=== PATIENT | female | born 1965 | race Caucasian/White ===

== ENCOUNTER 2020-04-29 19:15 | Emergency (ER) | payer OTHER, SELFPAY ==
[2020-04-29] VITALS (9 sets, daily range): BP systolic 108–129; BP diastolic 42–76; PULSE 72–93; RESP 12–22; TEMP 36.8; O2SAT 97–99
--- NOTE | ~2020-04-29 | XR_ITS ---
XR chest 2V DATE: 04/29/2020 20:22 INDICATION: Left-sided chest pain, shortness of breath for a few days TECHNIQUE: PA and lateral views COMPARISON: 07/30/2018 PA and lateral chest FINDINGS: Normal heart size. No hilar or mediastinal enlargement. No pulmonary infiltrate or consol idation, pulmonary vascular congestion, pleural effusion or pneumothorax. IMPRESSION: No active cardiopulmonary disease Reviewed, dictated and finalized at location A.
--- NOTE | 2020-04-29 19:58 | ECG_ITS ---
Measurements Intervals [place] Rate: 81 P: 59 SC: 182 QRS: 26 QRSD: 97 T: 47 QT: 397 QTc: 462 Interpretive Statements SINUS RHYTHM LOW QRS VOLTAGE IN PRECORDIAL LEADS BASELINE ARTIFACT- I, II, III, AVR, AVL, AVF, V1-V6 BORDERLINE ECG Electronically Signed On 04-29-2020 20:20:14 CDT by Raad Cantu D.O.
--- NOTE | 2020-04-29 20:04 | PC.NURSE ---
Pt. states she has had heart failure in the past, but I don't have it anymore. I also have a blood clot in my lungs and pneumonia probably 20 times.
[2020-04-29 20:24] LABS: Basophils Absolute Auto 0.1 K/mm3 (0.0-0.1); Basophils Percent Auto 1.8 % (0.2-1.2); Eosinophils Absolute Auto 0.6 K/mm3 (0-0.3); Eosinophils Percent Auto 13.8 % (0-4.4); Hematocrit 37.1 % (37.0-47.0); Hemoglobin 12.3 g/dL (12.0-15.0); Immature Granulocyte Absolute 0.01 K/mm3 (0.00-0.031); Immature Granulocyte Percent A 0.2 % (0-0.5); Lymphocytes Absolute Auto 1.74 K/mm3 (0.9-3.2); Lymphocytes Percent Auto 38.7 % (18.3-44.2); Mean Corpuscular HGB Conc 33.2 g/dl (32-36); Mean Corpuscular Hemoglobin 28.5 pg (26-34); Mean Corpuscular Volume 86.1 fl (80-100); Mean Platelet Volume 10.7 fl (7.4-10.4); Monocytes Absolute Auto 0.5 K/mm3 (0.1-0.6); Neutrophils Absolute Auto 1.6 K/mm3 (1.3-6.7); Neutrophils Percent Auto 35.5 % (45.5-73.1); Platelet Count Result 202 k/mm3 (150-375); Red Blood Count 4.31 M/mm3 (4.2-5.4); Red Cell Distribution Width 13.5 % (11.5-14.5); White Blood Count 4.5 K/mm3 (4.5-10.0)
[2020-04-29 20:38] LABS: INR 0.9; Prothrombin Time 12.8 Seconds (11.1-14.7)
[2020-04-29 20:39] LABS: Partial Thromboplastin Time 26.9 SECONDS (22.3-36.8)
[2020-04-29 20:41] LABS: Anion Gap 10 mmol/L (8-16); Blood Urea Nitrogen 17 mg/dL (7-17); Calcium 8.5 mg/dL (8.4-10.2); Carbon Dioxide 24 mmol/L (22-30); Chloride 107 mmol/L (98-107); Estimated CRCL calculation 57 ml/min; Estimated Glomerular Filt Rate 52; Glucose 98 mg/dL (65-105); Potassium 3.8 mmol/L (3.4-5.0); Sodium 141 mmol/L (137-145)
[2020-04-29 20:52] LABS: Troponin I < 0.012 ng/mL (0.000-0.034)
--- NOTE | 2020-04-29 21:48 | PC.NURSE ---
Per CYNTHIA Reynoso via verbal order-readback, give 5mg Valium PO.
[2020-04-29] MEDS: diazePAM (*CRX) 5 MG TABLET PO (21:51)
[2020-04-29] MEDS: IPRATROPIUM BR 0.02% INH SOLN 0.5 MG/2.5 ML VIAL INHALATION (21:52)
[2020-04-29] MEDS: ALBUTEROL SULFATE NEB 2.5 MG/0.5 ML INH 5 MG INHALATION (21:52)
--- NOTE | 2020-04-29 21:53 | ED.GENADULT ---
HPI - General Adult General Chief complaint: Neck Pain/Injury Stated complaint: Swelling on left neck and hard to breathe Time Seen by Provider: 04/29/20 21:21 Source: patient Mode of arrival: ambulatory Limitations: no limitations History of Present Illness HPI narrative: Patient is a 54-year-old female who presents to emergency department for evaluation of left-sided neck pain that radiates down to the chest that began today also noting some wheezing and a cough that developed today patient notes she had felt fine yesterday denies similar occurrence in the past. Patient presents per private vehicle no distress. Patient has not taken anything for symptom. After further questioning patient notes that she has actually had the pain for 3 days Related Data Allergies Allergy/AdvReac Type Severity Reaction Status Date / Time Penicillins Allergy Unknown Verified 10/11/18 18:27 Review of Systems Review of Systems: All systems reviewed & are unremarkable except as noted in HPI and below PMFSH Past Medical History Medical History (Updated 04/29/20 @ 23:48 by Arash Jimenes PA-C) Anxiety Depression Social History Social History (Updated 04/29/20 @ 21:55 by Arash Jimenes PA-C) Smoking status: Never smoker Gender identity (if verbalized by the patient): Female Exam Narrative: Exam Narrative: GENERAL: Well-appearing, well-nourished, and in no acute distress. HEAD: Normocephalic, atraumatic. EYES: PERRLA and EOMI. ENT: Nares clear, no rhinorrhea or epistaxis. Mucous membranes moist. Oropharynx without tonsillar hypertrophy exudate or other lesions. Mild tenderness to the left paraspinal cervical musculature no deformities noted no masses no swelling NECK: Supple. No adenopathy or masses. CHEST: Clear to auscultation. No respiratory distress. No wheezes rales or rhonchi HEART: Regular rate and rhythm. No murmur heard. Normal peripheral pulses. ABDOMEN: Soft, nontender, nondistended EXTREMITIES: Normal range of motion. No edema. SKIN: Warm, dry, no rash. NEURO: No focal deficits. Alert and oriented x3. Cranial nerves II through XII grossly intact PSYCH: Normal mood and affect. Course Course Emergency Course: Patient in the room at this time no distress aware of case findings treatment plan and diagnosis agreeing to follow with primary care patient's ABCs and vital signs intact and stable. Patient is afebrile nontoxic-appearing no distress. No high risk changes in the blood work or imaging. Patient was offered further interventions for her discomfort but prefers to go home. Patient will be treated outpatient Vital Signs Vital signs: Vital Signs Temperature 98.2 F 04/29/20 19:58 Pulse Rate 83 04/29/20 19:58 Respiratory Rate 20 04/29/20 19:58 Blood Pressure 108/42 L 04/29/20 19:58 Pulse Oximetry 98 04/29/20 19:58 Temperature 98.2 F 04/29/20 19:58 Pulse Rate 90 04/29/20 22:15 Respiratory Rate 22 H 04/29/20 22:15 Blood Pressure 125/76 04/29/20 21:23 Pulse Oximetry 99 04/29/20 22:15 Medical Decision Making MDM Narrative Medical decision making narrative: Patients EKGs and labs are without significant high risk changes. Cardiac risk factors were reviewed. Patient is felt likely to be low risk for ACS and reasonable for further risk stratification testing as an outpatient. Pain was not sudden or maximal in onset without tearing or ripping. quality. No other signs or symptoms to suggest aortic dissection. A low-risk Wells criteria is noted. PE is felt to be unlikely. No pneumonia or URI symptoms were seen on evaluation today. Patient is felt to b reasonable for continued evaluation as an outpatient. Vital Signs Vital Signs: Vital Signs Temperature 98.2 F 04/29/20 19:58 Pulse Rate 83 04/29/20 19:58 Respiratory Rate 20 04/29/20 19:58 Blood Pressure 108/42 L 04/29/20 19:58 Pulse Oximetry 98 04/29/20 19:58 Temperature 98.2 F 04/29/20 19:58 Pulse Rate 90
--- NOTE | 2020-04-29 23:29 | PC.NURSE ---
Patient in room crying, stating I am still in pain, why doesn't the doctor care about me. Patient updated on plan of care and informed PA Edgardo of patient's status.
[2020-04-29 23:45] LABS: Troponin I < 0.012 ng/mL (0.000-0.034)
== END 2020-04-30 00:07 | disposition home or self-care (01) ==
PROVIDERS: Emergency Provider Emergency Medicine; PCP Family Medicine
DX: M54.2 Cervicalgia (principal); R07.9 Chest pain, unspecified; R94.31 Abnormal electrocardiogram [ECG] [EKG]
CPT/HCPCS: 36415; 71046; 80048; 84484; 85025; 85610; 85730; 93005; 94640; 99284; A9270

== ENCOUNTER 2020-11-19 12:36 | Observation (INO) | payer OTHER, SELFPAY ==
--- NOTE | ~2020-11-19 | US_ITS ---
EXAMINATION: US abdomen limited EXAM DATE: 11/19/2020 16:28 INDICATION: Abdominal pain. Distended gallbladder on CT. TECHNIQUE: Multiple grayscale and Doppler images of the abdomen right upper quadrant were obtained (rhoda y a technologist who performed the scan) and subsequently reviewed. Correlation is made to CT scan ea rlnito same date. FINDINGS: The pancreatic head and body are normal in appearance. The pancreatic tail is not visualized. The l iver has normal echogenicity and contour. There are no focal liver lesions identified. There is no evidence of intrahepatic biliary duct dilation. Portal venous flow was seen in the hepatopedal, nor mal direction and has normal Doppler waveform. No right-sided hydronephrosis. Common bile duct measures 2-3 mm, which is normal. The gallbladder wall is normal in thickness, with moderate amount of distention. No sonographic evidence of pericholecystic fluid. There is no cholel ithiases. Technologist does report patient had right upper quadrant tenderness. IMPRESSION: Distended otherwise unremarkable gallbladder, but sonographic Bennett's sign was suspected by technologist. Can't exclude early acute cholecystitis. Reviewed, dictated and finalized at location G. IMPRESSION: Distended otherwise unremarkable gallbladder, but sonographic Alfredo y's sign was suspected by technologist. Can't exclude early acute cholecystiti s.
--- NOTE | ~2020-11-19 | CT_ITS ---
EXAMINATION: CT abdomen pelvis w con EXAM DATE: 11/19/2020 14:50 INDICATION: Right-sided abdominal pain. TECHNIQUE: Spiral CT of the abdomen and pelvis was performed following intravenous injection of 100 m L Omnipaque 350. Axial, coronal and sagittal images of the abdomen and pelvis were reviewed. The do se-length product (DLP) for this examination was 766.32 mGy-cm. The exposure was tailored according to patient size (auto mA exposure control), and iterative reconstruction (ASIR) was used as additiona l dose reduction technique. There is no prior study for comparison. FINDINGS: The liver, spleen, adrenal glands and pancreas are unremarkable. The gallbladder is disten ded but otherwise unremarkable. There is no biliary duct dilation. Portal and splenic veins are pat ent. Kidneys enhance symmetrically. There is no hydronephrosis. The uterus is unremarkable. The bladder is unremarkable. There is no retroperitoneal or pelvic lymphadenopathy. The appendix is normal. The stomach and small bowel are unremarkable. There is expected amount of c olonic stool. No free intraperitoneal gas. The heart is normal in size. There are no pericardial or pleural effusions. The lung bases are unremarkable. There are no osteoblastic or osteolytic les ions identified. IMPRESSION: 1. Distended but otherwise unremarkable gallbladder. Reviewed, dictated and finalized at location G.
--- NOTE | ~2020-11-19 | XR_ITS ---
EXAMINATION: XR chest 1V portable EXAM DATE: 11/19/2020 13:37 INDICATION: R chest pain X3 WKS, . TECHNIQUE: Portable AP frontal chest x-ray was obtained. Comparison is made to prior examination from 04/29/2020. FINDINGS: The lungs are clear. There are no pleural effusions. The cardiomediastinal silhouette is within normal limits. There is no pneumothorax suspected. The bones and soft tissues are unremarkab le. IMPRESSION: No acute cardiopulmonary findings. Reviewed, dictated and finalized at location G.
[2020-11-19 12:39] VITALS: BP 126/69; PULSE 70; RESP 16; TEMP 36.2; O2SAT 100
[2020-11-19 13:00] LABS: Basophils Absolute Auto 0.1 K/mm3 (0.0-0.1); Basophils Percent Auto 1.6 % (0.2-1.2); Eosinophils Absolute Auto 0.1 K/mm3 (0-0.3); Hematocrit 40.4 % (37.0-47.0); Hemoglobin 13.2 g/dL (12.0-15.0); Immature Granulocyte Absolute 0.01 K/mm3 (0.00-0.031); Immature Granulocyte Percent A 0.2 % (0-0.5); Lymphocytes Absolute Auto 2.44 K/mm3 (0.9-3.2); Lymphocytes Percent Auto 44.2 % (18.3-44.2); Mean Corpuscular HGB Conc 32.7 g/dl (32-36); Mean Corpuscular Hemoglobin 27.7 pg (26-34); Mean Corpuscular Volume 84.9 fl (80-100); Mean Platelet Volume 10.5 fl (7.4-10.4); Monocytes Absolute Auto 0.4 K/mm3 (0.1-0.6); Monocytes Percent Auto 6.9 % (2.6-8.5); Neutrophils Absolute Auto 2.5 K/mm3 (1.3-6.7); Neutrophils Percent Auto 45.1 % (45.5-73.1); Platelet Count Result 264 k/mm3 (150-375); Red Blood Count 4.76 M/mm3 (4.2-5.4); White Blood Count 5.5 K/mm3 (4.5-10.0)
[2020-11-19 13:09] LABS: Alanine Aminotransferase 16 U/L (4-35); Albumin Level 4.7 g/dL (3.5-5.1); Alkaline Phosphatase 62 U/L (38-126); Anion Gap 13 mmol/L (8-16); Aspartate Amino Transferase 24 U/L (14-36); Bilirubin,Total 0.2 mg/dL (0.2-1.3); Blood Urea Nitrogen 14 mg/dL (7-17); Calcium 9.7 mg/dL (8.4-10.2); Carbon Dioxide 21 mmol/L (22-30); Chloride 107 mmol/L (98-107); Estimated CRCL calculation 61 ml/min; Estimated Glomerular Filt Rate 58; Glucose 120 mg/dL (65-110); Lipase 64 U/L (23-300); Potassium 3.7 mmol/L (3.4-5.0); Sodium 141 mmol/L (137-145)
--- NOTE | 2020-11-19 13:25 | ECG_ITS ---
Measurements Intervals [place] Rate: 65 P: 67 DE: 194 QRS: 63 QRSD: 93 T: 56 QT: 451 QTc: 469 Interpretive Statements SINUS RHYTHM WITH SINUS ARRHYTHMIA NORMAL ECG Electronically Signed On 11-19-2020 14:48:03 CDT by Raad Cantu D.O.
--- NOTE | 2020-11-19 13:29 | ED.ABDPAIN ---
HPI - Abdominal Pain General Chief Complaint: Abdominal Pain Stated Complaint: ruq pain Time Seen by Provider: 11/19/20 13:07 Source: RN notes reviewed History of Present Illness HPI narrative: Patient presents emergency department from home for right-sided abdominal pain. Patient states he has had pain in the right lateral lower chest for the past 2 days. States the pain is located over the right lateral lower ribs she denies any direct trauma or injury she states nothing makes the pain better or worse described as sharp and stabbing she is notes associated nausea with the symptoms she denies any fevers or chills shortness of breath vomiting diarrhea or any other symptoms states has been taking Tylenol at home for the symptoms patient notes mild associated headache with the symptoms Related Data Home Medications Medication Instructions Recorded Confirmed clobetasol TOPICAL 11/19/20 clobetasol TOPICAL 11/19/20 hydroxyzine pamoate 11/19/20 lamotrigine 11/19/20 levothyroxine 11/19/20 Allergies Allergy/AdvReac Type Severity Reaction Status Date / Time Penicillins Allergy Unknown Unknown Verified 11/19/20 16:44 Review of Systems Review of Systems: Gen.: Denies fevers or chills ENT: Denies congestion Respiratory: Denies shortness of breath or cough CV: Denies chest pain or palpitations GI: See HPI denies burning, urgency, frequency or hematuria Musculoskeletal: Denies back pain or muscle pain Neuro: Denies numbness, tingling, weakness or focal weakness Skin: Denies rash Except as documented, all other systems reviewed and negative PMFSH Past Medical History Medical History Anxiety Depression Social History Social History Smoking status: Never smoker Gender identity (if verbalized by the patient): Female Exam Narrative: APPEARANCE: No acute distress, nontoxic, resting in bed HEENT: Normocephalic, atraumatic, OMM RESPIRATORY: No respiratory distress, clear to auscultation bilaterally with no rhonchi wheezing or rales CARDIOVASCULAR: RRR s murmur ABDOMINAL: Soft nondistended tender outpatient right upper quadrant no tenderness left upper quadrant, right lower quadrant left lower quadrant no rebound or guarding point tenderness over the right lateral inferior ribs no overlying erythema or rash MUSCULOSKELETAl: Moves all extremities. No clubbing, cyanosis or edema. NEURO: Awake and alert. Following commands, speech normal, no focal deficits SKIN:: Warm, dry. Normal Color PSYCHIATRIC: Normal affect/mood Course Course Emergency Course: Patient continues to have tenderness right upper quadrant following several doses of morphine will admit for pain control this time Plan discussed Dr. Jimenez presentation work-up agrees with consult. Recommends no antibiotics at this time Discussed with ANTON Guerin for Dr Jackson presentation work-up agrees with admission at this time Discussed with patient and family results of workup and diagnosis. Discussed need for admission. Patient and family understand and agree to current treatment plan Vital Signs Vital signs: Vital Signs Temperature 97.1 F L 11/19/20 12:39 Pulse Rate 70 11/19/20 12:39 Respiratory Rate 16 11/19/20 12:39 Blood Pressure 126/69 11/19/20 12:39 Pulse Oximetry 100 11/19/20 12:39 Temperature 97.1 F L 11/19/20 12:39 Pulse Rate 64 11/19/20 16:30 Respiratory Rate 16 11/19/20 16:30 Blood Pressure 118/76 11/19/20 16:30 Pulse Oximetry 100 11/19/20 16:30 MDM - Abdominal Pain Lab Data Result diagrams: 11/19/20 12:49 11/19/20 12:49 Labs: Lab Results 11/19/20 11/19/20 11/19/20 Range/Units 12:49 12:49 13:54 WBC 5.5 (4.5-10.0) K/mm3 RBC 4.76 (4.2-5.4) M/mm3 Hgb 13.2 (12.0-15.0) g/dL Hct 40.4 (37.0-47.0) % MCV 84.9 (80-100) fl MCH 27.7 (26-34) pg
[2020-11-19] MEDS: SODIUM CHLORIDE 0.9% IV 1,000 ML 999 ML IV CONT (14:08)
[2020-11-19] MEDS: KETOROLAC 30 MG/ML VIAL (*BKC) IV PUSH (14:09)
[2020-11-19 14:19] LABS: Add Urine Microscopic? NO; Appearance Urine Clear (Clear); Bilirubin Urine Negative (Negative); Blood Urine Negative (Negative); Color Urine Yellow (Yellow); Glucose Urine UA Negative (Negative); Ketones Urine Negative (Negative); Leukocyte Esterase Ur Negative LEU/UL (Negative); Nitrate Urine Negative (Negative); Protein Urine Negative (Negative); Specific Grav Ur 1.015 (1.001-1.035); Urobilinogen Urine Negative mg/dL (<2.0)
[2020-11-19] MEDS: MORPHINE SULFATE (*CRX) 4 MG/ML INJ IV PUSH ×3 (15:17→22:12)
[2020-11-19 16:30] VITALS: BP 118/76; PULSE 64; RESP 16; O2SAT 100
[2020-11-19] MEDS: MORPHINE SULFATE (*CRX) 4 MG/ML INJ 2 MG IV PUSH (16:38)
[2020-11-19 18:50] VITALS: BP 142/74; PULSE 66; RESP 20; TEMP 36.4; O2SAT 100; BMI 28.8
--- NOTE | 2020-11-19 18:53 | ADMGEN ---
This patient, Sweetie Reynoso, was admitted to [facility] Surg Room 326-01. Patient/family oriented to hospital policies and general routines including ID bracelet, bed and alarms, visiting hours, pain management, procedures, bathroom and other care routines, personal items, smoking policy, room service/diet, and visiting hours. Information on how to activate the Rapid Response Team has been discussed. Patient/Family are encouraged to report perceived risks to care and to ask questions if they do not understand what they are told or what they should do.
[2020-11-19] MEDS: SODIUM CHLORIDE 0.9% IV 1,000 ML 125 ML IV CONT (19:46)
[2020-11-19 22:00] VITALS: BP 127/80; PULSE 66; RESP 16; TEMP 36.8; O2SAT 97
--- NOTE | 2020-11-19 22:40 | PM.IMHP ---
H&P: HPI History of Present Illness Date/Time: 11/19/20 22:40 this is a 55-year-old female patient who has a past medical history of anxiety and depression. The patient came to the emergency room tonight with some complaints of right-sided abdominal pain that was just under her right side of her ribs. She said she has had this pain for about 2 days now. Prior to this she did not have this discomfort. She has not had any problem with her gallbladder in the past. Her pain did not radiate to her arm or neck or to her back or her shoulder. She describes the pain as sharp and stabbing. She also had nausea with that as well but no fever chills. No shortness of breath. No vomiting or diarrhea. Patient was taking Tylenol at home which did not relieve her symptoms. Abdominal pelvis CT was read as distended but otherwise unremarkable gallbladder . Abdominal ultrasound was read as distended otherwise unremarkable gallbladder but sonographic Bennett sign was suspected by technologist. Cannot exclude early acute cholecystitis. Surgery has been consulted and no antibiotic recommendations were made at this time. Chest x-ray was read as no acute cardiopulmonary findings. The patient was given Toradol , morphine, and IV fluids. the patient is being admitted to observation status on the date of service of 11/19/2020. Chief Complaint: Intractable right upper quadrant pain Review of Systems Review of Systems: All systems reviewed & are unremarkable except as noted in HPI and below Constitutional: Constitutional: Reports as per HPI and Reports no additional constitutional complaints Eyes: Eyes: Reports as per HPI and Reports no additional eye complaints ENT: Reports system reviewed and no additional complaints, except as documented and Reports Normal hearing present Cardiovascular: Cardiovascular: Reports no additional cardiovascular complaints Respiratory: Respiratory: Reports no additional respiratory complaints and Reports no additional respiratory complaints Gastrointestinal: Gastrointestinal: Reports as per HPI and Reports no additional gastrointestinal complaints Musculoskeletal: Musculoskeletal: Reports no additional musculoskeletal complaints Integumentary/Breasts: Skin/Breast: Reports system reviewed and no additional complaints, except as docu and Reports as per HPI Neurologic: Reports system reviewed and no additional complaints, except as documented, Reports as per HPI and Reports Normal hearing present Psychiatric: Psychiatric: Reports no additional psychiatric complaints and Reports as per HPI Endocrine: Endocrine: Reports no additional endocrine complaints Hematologic/Lymphatic: Hematologic/Lymphatic: Reports no additional hematologic/lymphatic complaints Allergic/Immunologic: Allergic/Immunologic: Reports no additional allergic/immunologic complaints PMFSH Past Medical History Medical History (Updated 11/19/20 @ 23:49 by Apoorva Jones NP) Anxiety Asthma Congestive heart failure Depression Hypothyroidism Migraine Psoriasis Pulmonary emboli Seizure disorder Traumatic brain injury causing some memory problems Surgical History Surgical History (Updated 11/19/20 @ 23:45 by Apoorva Jones NP) H/O hand surgery left hand H/O lumpectomy left arm History of section, classical Family History Family History Father Congestive heart failure Social History Social History (Updated 11/19/20 @ 23:46 by Apoorva Jones NP) Social History: the patient is and she is an ex-smoker. She had 3 children and 1 daughter committed suicide at the age of 13. 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 Smoking packs per day: 1 Smoking cigarettes per day: 20.0 Years smoked: 30 Smoking pack-years: 30.00 Smoking status: Former smoker Al
[2020-11-20] VITALS (16 sets, daily range): BP systolic 115–150; BP diastolic 66–104; PULSE 67–101; RESP 14–20; TEMP 36.3–36.8; O2SAT 94–100
[2020-11-20] MEDS: MORPHINE SULFATE (*CRX) 4 MG/ML INJ IV PUSH ×7 (00:31→22:18)
[2020-11-20] MEDS: LEVOTHYROXINE SODIUM INJ 100 MCG/5 ML VIAL 44 MCG IV PUSH (06:04)
[2020-11-20] MEDS: SODIUM CHLORIDE 0.9% IV 1,000 ML 125 ML IV CONT (06:25)
[2020-11-20 06:56] LABS: Basophils Absolute Auto 0.1 K/mm3 (0.0-0.1); Basophils Percent Auto 1.5 % (0.2-1.2); Eosinophils Absolute Auto 0.2 K/mm3 (0-0.3); Eosinophils Percent Auto 2.9 % (0-4.4); Hematocrit 38.6 % (37.0-47.0); Hemoglobin 12.2 g/dL (12.0-15.0); Immature Granulocyte Absolute 0.01 K/mm3 (0.00-0.031); Immature Granulocyte Percent A 0.2 % (0-0.5); Lymphocytes Absolute Auto 2.36 K/mm3 (0.9-3.2); Lymphocytes Percent Auto 45.4 % (18.3-44.2); Mean Corpuscular HGB Conc 31.6 g/dl (32-36); Mean Corpuscular Volume 88.5 fl (80-100); Mean Platelet Volume 10.8 fl (7.4-10.4); Monocytes Absolute Auto 0.4 K/mm3 (0.1-0.6); Monocytes Percent Auto 8.5 % (2.6-8.5); Neutrophils Absolute Auto 2.2 K/mm3 (1.3-6.7); Neutrophils Percent Auto 41.5 % (45.5-73.1); Platelet Count Result 240 k/mm3 (150-375); Red Blood Count 4.36 M/mm3 (4.2-5.4); Red Cell Distribution Width 14.4 % (11.5-14.5); White Blood Count 5.2 K/mm3 (4.5-10.0)
[2020-11-20 07:08] LABS: Alanine Aminotransferase 14 U/L (4-35); Albumin Level 4.1 g/dL (3.5-5.1); Alkaline Phosphatase 52 U/L (38-126); Anion Gap 8 mmol/L (8-16); Aspartate Amino Transferase 24 U/L (14-36); Bilirubin,Total 0.4 mg/dL (0.2-1.3); Blood Urea Nitrogen 11 mg/dL (7-17); Calcium 8.6 mg/dL (8.4-10.2); Carbon Dioxide 22 mmol/L (22-30); Chloride 111 mmol/L (98-107); Estimated CRCL calculation 62 ml/min; Estimated Glomerular Filt Rate 58; Glucose 88 mg/dL (65-110); Lactate Dehydrogenase 465 U/L (313-618); Lipase 45 U/L (23-300); Magnesium 1.9 mg/dL (1.6-2.3); Potassium 3.7 mmol/L (3.4-5.0); Sodium 141 mmol/L (137-145)
--- NOTE | 2020-11-20 07:12 | PM.CNGS ---
Assessment and Plan Assessment and plan (1) Cholecystitis: Code(s): K81.9 - Cholecystitis, unspecified Status: Acute Assessment and Plan: will setup for cholecystectomy, NPO for now History of Present Illness Consult details Consult date: 11/20/20 Reason for consult: abdominal pain Requesting physician: Lokesh Jackson MD Narrative: Pt is a 55 y/o F presenting to ED c/o severe RUQ abd pain over last wk. Pt reports pain was initially mild, intermittent but has progressed to severe, sharp, constant. Pt reports she has had poor appetite and nausea over last wk. Pt reports eating seems to exacerbate the pain. Pt denies previous episodes. Pt is having normal bowel fxn. Review of Systems Constitutional: Constitutional: Denies anorexia, Denies chills, Reports fatigue, Denies fever(s), Reports headache(s), Reports lethargy, Denies malaise, Reports poor appetite and Denies weakness Eyes: Eyes: Reports no additional eye complaints ENT: Reports system reviewed and no additional complaints, except as documented Cardiovascular: Cardiovascular: Reports no additional cardiovascular complaints Respiratory: Respiratory: Reports no additional respiratory complaints Gastrointestinal: Gastrointestinal: Reports abdominal pain, Reports bloating, Denies change in bowel habits, Denies change in stool character, Denies constipation, Reports GI cramping, Reports early satiety, Reports dyspepsia, Reports heartburn, Denies diarrhea, Denies loose stools, Reports nausea and Denies vomiting Genitourinary: Genitourinary: Reports no additional female genitourinary complaints Musculoskeletal: Musculoskeletal: Reports no additional musculoskeletal complaints Integumentary/Breasts: Skin/Breast: Reports system reviewed and no additional complaints, except as docu Neurologic: Reports system reviewed and no additional complaints, except as documented Psychiatric: Psychiatric: Reports no additional psychiatric complaints Endocrine: Endocrine: Reports no additional endocrine complaints Hematologic/Lymphatic: Hematologic/Lymphatic: Reports no additional hematologic/lymphatic complaints Allergic/Immunologic: Allergic/Immunologic: Reports no additional allergic/immunologic complaints PMFSH Past Medical History Medical History Anxiety Asthma Congestive heart failure Depression Hypothyroidism Migraine Psoriasis Pulmonary emboli Seizure disorder Traumatic brain injury causing some memory problems Surgical History Surgical History H/O hand surgery left hand H/O lumpectomy left arm History of section, classical Family History Family History Father Congestive heart failure Social History Social History Social History: the patient is and she is an ex-smoker. She had 3 children and 1 daughter committed suicide at the age of 13. 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 Smoking packs per day: 1 Smoking cigarettes per day: 20.0 Years smoked: 30 Smoking pack-years: 30.00 Smoking status: Former smoker Alcohol intake: former Substance use: never Gender identity (if verbalized by the patient): Female Spiritual care concerns: No Meds Home Medications and Allergies Home Medications Medication Instructions Recorded Confirmed Type buspirone 15 mg PO TID 11/19/20 11/19/20 History clobetasol See Rx Instructions .ROUTE .COMPLEX 11/19/20 11/19/20 History hydroxyzine pamoate 100 mg PO QID PRN 11/19/20 11/19/20 History lamotrigine 200 mg PO DAILY 11/19/20 11/19/20 History levothyroxine 88 mcg PO DAILY 11/19/20 11/19/20 History sumatriptan succinate [Imitrex] 50 mg PO TID PRN
[2020-11-20 07:17] LABS: Lactic Acid Reflex 1.1 mmol/L (0.7-2.1)
--- NOTE | 2020-11-20 07:20 | WPDHPUPDATE1 ---
History and Physical Update Update Date/Time: 11/20/20 07:20 History and Physical has been reviewed, including an updated exam of the patient. There are NO changes in the patient's condition. Risks, benefits, and alternatives have been discussed and questions answered. Patient agrees to proceed with procedure.
--- NOTE | 2020-11-20 08:19 | PC.NURSE ---
Patient down to preop via wheelchair at 0810.
[2020-11-20] MEDS: LACTATED RINGERS 1,000 ML 30 ML IV CONT ×2 (08:30→10:04)
--- NOTE | 2020-11-20 08:31 | WPDANESEPPF ---
Anes - Initial Pre Proc Eval Procedure: Operation Date: 11/20/20 09:00 Proposed Procedures p Laparoscopic Cholecystectomy - Aurora Jimenez MD Date/Time: 11/20/20 08:31 Surgeon: Jun Jackson MD Pre Op Diagnosis: ruq abdominal pain intractable, biliary colic Patient Data Age: 55 Gender: F Height: 1.68 m Weight: 80.9 kg Last Vital Signs Temp 36.7 C 11/20/20 06:00 Pulse 67 11/20/20 06:00 Resp 16 11/20/20 06:00 BP 134/74 11/20/20 06:00 Pulse Ox 96 11/20/20 06:00 Allergies Allergy/AdvReac Type Severity Reaction Status Date / Time Penicillins Allergy Unknown Unknown Verified 11/19/20 19:03 Home Medications Medication Instructions Recorded Confirmed Type buspirone 15 mg PO TID 11/19/20 11/19/20 History clobetasol See Rx Instructions .ROUTE .COMPLEX 11/19/20 11/19/20 History hydroxyzine pamoate 100 mg PO QID PRN 11/19/20 11/19/20 History lamotrigine 200 mg PO DAILY 11/19/20 11/19/20 History levothyroxine 88 mcg PO DAILY 11/19/20 11/19/20 History sumatriptan succinate [Imitrex] 50 mg PO TID PRN 11/19/20 11/19/20 History topiramate 100 mg PO TID 11/19/20 11/19/20 History trazodone 100 mg PO HS 11/19/20 11/19/20 History venlafaxine 150 mg PO DAILY 11/19/20 11/19/20 History Laboratory Tests 11/19/20 11/19/20 11/19/20 12:49 12:49 13:54 WBC 5.5 K/mm3 K/mm3 (4.5-10.0) RBC 4.76 M/mm3 M/mm3 (4.2-5.4) Hgb 13.2 g/dL g/dL (12.0-15.0) Hct 40.4 % % (37.0-47.0) MCV 84.9 fl fl (80-100) MCH 27.7 pg pg (26-34) MCHC 32.7 g/dl g/dl (32-36) RDW 14.0 % % (11.5-14.5) Plt Count 264 k/mm3 k/mm3 (150-375) MPV 10.5 fl H fl (7.4-10.4) Immature Gran % (Auto) 0.2 % % (0-0.5) Neut % (Auto) 45.1 % L % (45.5-73.1) Lymph % (Auto) 44.2 % % (18.3-44.2) Livingston % (Auto) 6.9 % % (2.6-8.5) Eos % (Auto) 2.0 % % (0-4.4) Baso % (Auto) 1.6 % H % (0.2-1.2) Lymph # (Auto) 2.44 K/mm3 K/mm3 (0.9-3.2) Livingston # (Auto) 0.4 K/mm3 K/mm3 (0.1-0.6) Eos # (Auto) 0.1 K/mm3 K/mm3 (0-0.3) Baso # (Auto) 0.1 K/mm3 K/mm3 (0.0-0.1) Abs Immat Gran (auto) 0.01 K/mm3 K/mm3 (0.00-0.031) Absolute Neuts (auto) 2.5 K/mm3 K/mm3 (1.3-6.7) Absolute Nucleated RBC 0.0 K/mm3 K/mm3 (0.0-0.012) Nucleated RBC % 0.0 % % (0.0-0.2) Sodium 141 mmol/L mmol/L (137-145) Potassium 3.7 mmol/L mmol/L (3.4-5.0) Chloride 107 mmol/L mmol/L (98-107) Carbon Dioxide 21 mmol/L L mmol/L (22-30) Anion Gap 13 mmol/L mmol/L (8-16) BUN 14 mg/dL mg/dL (7-17) Creatinine 1.00 mg/dL mg/dL (0.7-1.0) Estim Creat Clear Calc 61 ml/min ml/min Estimated GFR 58 L (59 - ) Glucose 120 mg/dL H mg/dL (65-110) Lactic Acid Calcium 9.7 mg/dL mg/dL (8.4-10.2) Magnesium Total Bilirubin 0.2 mg/dL mg/dL (0.2-1.3) AST 24 U/L U/L (14-36) ALT 16 U/L U/L (4-35) Alkaline Phosphatase 62 U/L U/L (38-126) Lactate Dehydrogenase Total Protein 8.0 g/dL g/dL (6.3-8.2) Albumin 4.7 g/dL g/dL (3.5-5.1) Lipase 64 U/L U/L (23-300) TSH (Reflex) Free T4 Urine Color Yellow (Yellow) Urine Appearance Clear (Clear) Urine pH 5.0 (5.0-9.0) Ur Specific Trout 1.015 (1.001-1.035) Urine Protein Negative mg/dL mg/dL (Negative) Urine Glucose (UA) Negative mg/dL mg/dL (Negative) Urine Ketones Negative mg/dL mg/dL (Negative) Ur Blood (Man) Negative (Negative) Urine Nitrate Negative (Negative) Urine Bilirubin Negative (Negative) Urine Urobilinogen Nega
[2020-11-20] MEDS: ceFAZolin 2 GM/D5W 50 ML 2 GM/50 ML BAG IVPB (08:48)
[2020-11-20] MEDS: LIDO 1%/EPINEPHRINE 1:100,000 50 ML VIAL 20 ML INFILTRATE (09:10)
--- NOTE | 2020-11-20 09:47 | P.OP_ITS ---
Procedure Note - Detailed Date of Procedure 11/20/20 Pre-op Diagnosis cholecystitis Post-op Diagnosis same Procedure Performed laparoscopic cholecystectomy Surgeon Aurora Jimenez MD Anesthesia general Indications 55 y/o F c severe RUQ abd pain x 1 wk. Imaging and exam c/w acalculous cholecystitis. Findings distended gallbladder Description of Procedure The patient was taken to the operating room placed in the supine position. After adequate induction of general anesthesia, the patient was prepped and draped in normal sterile fashion. A time-out was then performed to verify the patient's identity as well as the procedure being performed. I then made a 5 mm incision in the infraumbilical region. Through this, a Veress needle was placed into the peritoneal cavity and CO2 gas was then insufflated. After adequate pneumoperitoneum was achieved, the Veress needle was removed and a 5 mm optiview trocar was placed through this incision under direct visualization. I then placed the laparoscope through this trocar site and under direct visualization placed a further 12 mm subxiphoid port as well as 2 additional 5 mm ports in the right upper abdomen. The gallbladder was then identified and was noted to be minimally inflamed and distended. I was able to place a grasper at the dome of the gallbladder and this was retracted anterior and cephalad up over the liver. A 2nd retractor was then placed at the infundibulum and retracted laterally, this allowed visualization of the triangle of Calot. I then was able to visualize the cystic duct in its entirety from its proximal insertion into the gallbladder, to its distal junction with the common hepatic/common bile duct junction. At this point, I carefully skeletonized the proximal cystic duct with the [place] dissector. I then clipped and transected the proximal cystic duct. Next I visualized the cystic artery. Again the artery was skeletonized, clipped, and transected. I then used the Bovie cautery to take down the peritoneal attachments of the gallbladder off the liver bed. This was somewhat difficult given the amount of inflammation in the posterior space. Once the gallbladder specimen was completely detached, an endo-pouch was placed through the 12 mm port site. I then placed the gallbladder specimen into the Endo pouch and removed the endo-pouch from the 12 mm port site. The specimen will now be sent to pathology for further review. I then copiously irrigated the right upper quadrant. Some mild oozing was noted in the liver bed and this was controlled with the bovie cautery. I then placed some hemostatic powder in the liver bed. Hemostasis was noted in the liver bed, the clips were noted to be in good position on both the cystic duct stump and the cystic artery stump. No other pathology was noted in the right upper quadrant. I then moved the laparoscope to the subxiphoid port. No iatrogenic injury or other pathology was noted in the lower abdomen. I then closed the 12 mm trocar site under direct v isualization using the Tobin cone and 0 Vicryl suture. At this point, the abdomen was desufflated and all ports removed. All port sites were then closed with 4.O Monocryl subcuticular sutures. Dermabond was placed on each incision. The patient tolerated the procedure well, was extubated in the operating room postoperative and will be transferred to the recovery room in stable condition Estimated Blood Loss 40 Drains No Packing No Pathology yes Complications No immediate complications Condition stable Disposition PACU
[2020-11-20] MEDS: fentaNYL CITRATE INJ (*CRX) 100 MCG/2 ML VIAL 25 MCG IV PUSH ×8 (09:55→10:17)
[2020-11-20] MEDS: ONDANSETRON INJ 4 MG/2 ML VIAL IV PUSH ×3 (09:59→20:15)
[2020-11-20] MEDS: HYDROmorphone HCL INJ (*CRX) 1 MG/ML SYR 0.5 MG IV PUSH ×3 (10:19→10:33)
[2020-11-20] MEDS: HYDROmorphone HCL INJ (*CRX) 1 MG/ML SYR IV PUSH ×3 (10:42→10:59)
--- NOTE | 2020-11-20 11:27 | PC.NURSE ---
Patient back to floor from surgery at 1125.
[2020-11-20] MEDS: lamoTRIgine 100 MG TABLET 200 MG PO (13:22)
[2020-11-20] MEDS: TOPIRAMATE 100 MG TABLET PO ×2 (13:23→17:13)
[2020-11-20] MEDS: VENLAFAXINE HCL XR 75 MG CAP.ER.24H 150 MG PO (13:23)
[2020-11-20] MEDS: busPIRone HCL 5 MG TABLET 15 MG PO ×2 (13:23→17:12)
--- NOTE | 2020-11-20 13:30 | PM.IMPN ---
Progress Note: A&P Assessment and Plan (1) Intractable right upper quadrant abdominal pain: Code(s): R10.11 - Right upper quadrant pain Status: Acute Assessment and Plan: According to her abdominal pelvis CT the gallbladder was distended but otherwise remarkable. The patient has some tenderness to the right upper quadrant. pt is sp cholecystomy today. . (2) Hypothyroidism: Code(s): E03.9 - Hypothyroidism, unspecified Status: Chronic Assessment and Plan: I will give her her IV dose of levothyroxine which is half of her oral. continue until she can start oral. tsh is 37 (3) Psoriasis: Code(s): L40.9 - Psoriasis, unspecified Status: Chronic Assessment and Plan: IV Ativan and continue with clobetasol ordered (4) Seizure disorder: Code(s): G40.909 - Epilepsy, unspecified, not intractable, without status epilepticus Status: Chronic Assessment and Plan: the patient is on Lamictal but she is NPO. She has p.r.n. Iv Ativan (5) Migraine: Code(s): G43.909 - Migraine, unspecified, not intractable, without status migrainosus Status: Chronic Assessment and Plan: patient is NPO at this time she is typically on topiramate. (6) Asthma: Code(s): J45.909 - Unspecified asthma, uncomplicated Status: Chronic Assessment and Plan: Patient no longer uses an inhaler (7) Depression: Code(s): F32.9 - Major depressive disorder, single episode, unspecified Status: Chronic Assessment and Plan: Patient is NPO tonight. Once the patient is taking p.o. we can restart her home medications. Subjective Date/time seen: 11/20/20 13:30 Interval history: 55-year-old female patient who has a past medical history of anxiety and depression. The patient came to the emergency room tonight with some complaints of right-sided abdominal pain that was just under her right side of her ribs.SP cholecystectomy today having severe abdo pains. labs are relatively normal except TSH of 37. UA shows trace bacteria Review of Systems Review of Systems: All systems reviewed & are unremarkable except as noted in HPI and below Exam Const: General: cooperative and healthy appearing; No in distress Nutritional Appearance: overweight Orientation/consciousness: oriented to person HENMT: Head: normal to inspection Resp: Effort & Inspection: no respiratory distress Auscultation: no rhonchi and no wheezes Cardio: Rate: regular rate Rhythm: regular rhythm GI: Inspection: other (cholestecomy fresh incisions ) GI Palp: No abdominal tenderness, No Guarding due to palpation present (GI) and No Hepatomegaly present Auscultation: normal bowel sounds Neuro: General: oriented to person Objective Data Vital Signs Vital Signs: Vital Signs - 24 hr 11/19/20 16:30 11/19/20 18:50 11/19/20 22:00 Temperature 36.4 C L 36.8 C Pulse Rate 64 66 66 Respiratory Rate 16 20 16 Blood Pressure 118/76 142/74 H 127/80 Pulse Oximetry 100 100 97 11/20/20 01:35 11/20/20 06:00 11/20/20 08:00 Temperature 36.7 C Pulse Rate 74 67 70 Respiratory Rate 16 18 Blood Pressure 134/74 Pulse Oximetry 98 96 99 11/20/20 08:30 11/20/20 09:45 11/20/20 10:00 Temperature 36.8 C 36.3 C L Pulse Rate 70 80 82 Respiratory Rate 18 18 18 Blood Pressure 144/81 H 150/104 H 132/71 Pulse Oximetry 99 100 95 11/20/20 10:15 11/20/20 10:30 11/20/20 10:45 Temperature Pulse Rate 88 80 89 Respiratory Rate 18 16 14 Blood Pressure 129/81 139/76 133/83 Pulse Oximetry 97 96 98 11/20/20 11:00 11/20/20 11:15 11/20/20 11:40 Temperature 36.4 C Pulse Rate 91 92 88 Respiratory Rate 20 16 14 Blood Pressure 138/76 138/75 115/72 Pulse Oximetry 97 96 94 11/20/20 11:45 11/20/20 12:15 Temperature 36.5 C 36.8 C Pulse Rate 94 101 H Respiratory Rate 16 20 Blood Pressure 118/68 131/66 Pulse Oximetry 94 94 Intake/Output Intake/Output: Intake & Ou
[2020-11-20] MEDS: HYDROcodone/acetaminophen (*CRX) 5-325 MG TABLET 1 TAB PO ×2 (14:53→21:07)
[2020-11-20] MEDS: LORazepam INJ (*CRX) 2 MG/ML VIAL 0.5 MG IV PUSH (17:11)
[2020-11-20] MEDS: SUMAtriptan SUCCINATE 25 MG TABLET 50 MG PO ×2 (18:10→20:15)
[2020-11-20] MEDS: traZODone HCL 50 MG TABLET 100 MG PO (20:15)
[2020-11-20 21:19] LABS: Total Triiodothyronine (T3) 1.28 NG/ML (0.97-1.69)
[2020-11-21] MEDS: LEVOTHYROXINE SODIUM 88 MCG TABLET PO (05:38)
[2020-11-21] MEDS: MORPHINE SULFATE (*CRX) 4 MG/ML INJ IV PUSH ×3 (05:38→12:18)
[2020-11-21] MEDS: HYDROcodone/acetaminophen (*CRX) 5-325 MG TABLET 1 TAB PO ×3 (08:58→16:20)
[2020-11-21] MEDS: VENLAFAXINE HCL XR 75 MG CAP.ER.24H 150 MG PO (09:00)
[2020-11-21] MEDS: TOPIRAMATE 100 MG TABLET PO ×3 (09:00→16:16)
[2020-11-21] MEDS: lamoTRIgine 100 MG TABLET 200 MG PO (09:00)
[2020-11-21] MEDS: busPIRone HCL 5 MG TABLET 15 MG PO ×3 (09:00→16:16)
--- NOTE | 2020-11-21 11:55 | PM.PNGS ---
Progress Note: A&P Assessment and Plan (1) Cholecystitis: Code(s): K81.9 - Cholecystitis, unspecified Status: Acute Assessment and Plan: doing well after laparoscopic cholecystectomy yesterday. Patient is okay for discharge from surgical standpoint. Home on low-fat diet and increase activity. Showers and baths are fine. Encouraged to ambulate after discharge. She will see Dr. Jimenez in about 2 weeks. Subjective Subjective Date/Time Seen: 11/21/20 11:55 Post Op day: 1 Patient reports: feels better, pain is less, tolerating liquids well and afebrile Exam Const: General: comfortable, no acute distress, well developed, alert and awake Nutritional Appearance: overweight Orientation/consciousness: No confusion GI: Inspection: non-distended and incision ( All incisions dry and healing well) GI Palp: Yes Soft to palpation and Yes Tenderness to palpation present (GI) ( minimal appropriate tenderness) Auscultation: normal bowel sounds Objective Data Vital Signs Vital Signs: Vital Signs - 24 hr 11/20/20 12:15 11/20/20 14:00 11/20/20 21:09 Temperature 36.8 C 36.6 C Pulse Rate 101 H 98 81 Respiratory Rate 20 16 Blood Pressure 131/66 124/68 Pulse Oximetry 94 97 98 Intake/Output Intake/Output: Intake & Output 11/18/20 11/19/20 11/20/20 11/21/20 23:59 23:59 23:59 23:59 Intake Total 1000 3090 870 Output Total 500 Balance 1000 3090 370 Meds/Results Medications: Active Medications Generic Name Dose Route Start Last Admin Trade Name Freq PRN Reason Stop Dose Admin Hydrocodone Bitart/Acetaminophen 1 tab 11/20/20 14:29 11/21/20 08:58 Hydrocodone/Acetaminophen (*Crx) 5-325 Mg Tablet PO 1 tab Q4H PRN Administration Pain Rated 4-6 Buspirone HCl 15 mg 11/20/20 13:00 11/21/20 09:00 Buspirone Hcl 5 Mg Tablet PO 15 mg TID TIFFANIE Administration Clobetasol Propionate 1 applic 11/20/20 09:00 Clobetasol Propionate 0.05% Cream 30 Gm TOPICAL Q12HR PRN Dryness Hydroxyzine HCl 25 mg 11/19/20 23:34 Hydroxyzine Hcl 50 Mg/Ml Vial IM Q4H PRN Itching Hydroxyzine Pamoate 100 mg 11/20/20 11:18 Hydroxyzine Pamoate 25 Mg Capsule PO QID PRN Itching Sodium Chloride 1,000 mls @ 125 mls/hr 11/19/20 17:30 11/20/20 22:15 Normal Saline Iv IV CONT Not Given .Q8H TIFFANIE Lamotrigine 200 mg 11/20/20 09:00 11/21/20 09:00 Lamotrigine 100 Mg Tablet PO 200 mg DAILY TIFFANIE Administration Levothyroxine Sodium 44 mcg 11/20/20 06:30 11/21/20 08:59 Levothyroxine Sodium Inj 100 Mcg/5 Ml Vial IV PUSH Not Given DAILY@0630 TIFFANIE Levothyroxine Sodium 88 mcg 11/21/20 06:30 11/21/20 05:38 Levothyroxine Sodium 88 Mcg Tablet PO 88 mcg DAILY@0630 TIFFANIE Administration Lorazepam 0.5 mg 11/19/20 23:35 11/20/20 17:11 Lorazepam Inj (*Crx) 2 Mg/Ml Vial IV PUSH 0.5 mg Q6H PRN Administration Anxiety Miscellaneous Information 0 each 11/20/20 00:01 Iv And Po Hydroxyzine Ordered Prn Itching - Please Clarify XX 12/20/20 00:00 [facility] Morphine Sulfate 4 mg 11/19/20 17:26 11/21/20 10:19 Morphine Sulfate (*Crx) 4 Mg/Ml Inj IV PUSH 4 mg Q2H PRN Administration Pain Rated 7-10 Ondansetron HCl 4 mg 11/19/20 17:26 11/20/20 20:15 Ondansetron Inj 4 Mg/2 Ml Vial IV PUSH 4 mg Q4H PRN Administration Nausea Sumatriptan Succinate 50 mg 11/20/20 11:18 11/20/20 20:15 Sumatriptan Succinate 25 Mg Tablet PO 50 mg TID PRN Administration Migraine Headache Topiramate 100 mg 11/20/20 13:00 11/21/20 09:00 Topiramate 100 Mg Tablet PO 100 mg TID TIFFANIE Administration Trazodone HCl 100 mg 11/20/20 21:00 11/20/20 20:15 Trazodone Hcl 50 Mg Tablet PO 100 mg HS TIFFANIE Administration Venlafaxine HCl 150 mg 11/20/20 09:00 11/21/20 09:00 Venlafaxine Hcl Xr 75 Mg Cap.Er.24h PO 150 mg DAILY TIFFANIE Administration Radiology Results: ITS Impressions Chest X-R
--- NOTE | 2020-11-21 12:10 | WPDANESPN ---
Anes - Prog Note Post-Op Date/Time: 11/21/20 12:10 Cardiovascular status: normal Respiratory status: normal Airway patency: baseline Mental status: baseline Post-Op hydration status: normal Vital Signs: Last Vital Signs Temp 36.6 C 11/20/20 14:00 Pulse 81 11/20/20 21:09 Resp 16 11/20/20 14:00 BP 124/68 11/20/20 14:00 Pulse Ox 98 11/20/20 21:09 Pain Score (VAS): 0 I/O: Intake & Output 11/20/20 11/21/20 11/21/20 23:59 07:59 15:59 Intake Total 490 750 120 Output Total 500 Balance 490 250 120 Laboratory Tests 11/20/20 06:33 11/20/20 06:33 11/20/20 06:33 Total T3 1.28 Post-procedural complaints: none Patient Feedback: Patient satisfied with anesthetic care.
[2020-11-21] MEDS: ONDANSETRON INJ 4 MG/2 ML VIAL IV PUSH (12:13)
--- NOTE | 2020-11-21 12:58 | PM.IMPN ---
Progress Note: A&P Assessment and Plan (1) Intractable right upper quadrant abdominal pain: Code(s): R10.11 - Right upper quadrant pain Status: Acute Assessment and Plan: CT scan and ultrasound of the abdomen showed distended gallbladder. Probable Bennett sign with tenderness in the right upper quadrant. Surgery service was consulted who recommended laparoscopic cholecystectomy. She underwent procedure yesterday on 11/20. She tolerated the procedure very well. She was complaining of pain at the surgical site today though denied have any nausea vomiting. Her diet was advanced for the dinner. She has not moved her bowel. (2) Hypothyroidism: Code(s): E03.9 - Hypothyroidism, unspecified Status: Chronic Assessment and Plan: She is currently on her home dose of levothyroxine. TSH is 37 but T3 and T4 level is within acceptable range. (3) Psoriasis: Code(s): L40.9 - Psoriasis, unspecified Status: Chronic Assessment and Plan: continue with clobetasol ordered (4) Seizure disorder: Code(s): G40.909 - Epilepsy, unspecified, not intractable, without status epilepticus Status: Chronic Assessment and Plan: Continue home medication with Lamictal. (5) Migraine: Code(s): G43.909 - Migraine, unspecified, not intractable, without status migrainosus Status: Chronic Assessment and Plan: Continue on topiramate. (6) Asthma: Code(s): J45.909 - Unspecified asthma, uncomplicated Status: Chronic Assessment and Plan: Patient no longer uses an inhaler No wheezing. DuoNebs on a as needed basis. (7) Depression: Code(s): F32.9 - Major depressive disorder, single episode, unspecified Status: Chronic Assessment and Plan: Continue her home medication. Additional Plan Likely discharge in a.m. if her pain is adequately controlled and able to tolerate regular diet. Subjective Date/time seen: 11/21/20 12:58 Interval history: 55-year-old female patient who has a past medical history of anxiety and depression. The patient came to the emergency room with some complaints of right-sided abdominal pain that was just under her right side of her ribs. She was found to have acute cholecystitis. She underwent laparoscopic cholecystectomy. She is feeling better but still complaining of pain. She was offered discharge home today but she was reluctant is she is having quite a bit of pain and think that she will come back to the emergency department right away for significant pain. She denied have any nausea vomiting. She denied have any fever and chills. Review of Systems Review of Systems: All systems reviewed & are unremarkable except as noted in HPI and below Exam Narrative: General awake and alert not in acute distress Neck supple dull tenderness no deformity JVD not elevated CVS S1-S2 no murmur Respiratory no wheezes or crepitation respiration nonlabored GI soft operative merchant with bandages. No significant tenderness. No distention. 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 and grossly nonfocal neurological exam Psychiatric cooperative appropriate mood and affect Musculoskeletal normal range of motion or joint swelling no rashes Extremities no edema Objective Data Vital Signs Vital Signs: Vital Signs - 24 hr 11/20/20 14:00 11/20/20 21:09 Temperature 36.6 C Pulse Rate 98 81 Respiratory Rate 16 Blood Pressure 124/68 Pulse Oximetry 97 98 Intake/Output Intake/Output: Intake & Output 11/18/20 11/19/20 11/20/20 11/21/20 23:59 23:59 23:59 23:59 Intake Total 1000 3090 870 Output Total 500 Balance 1000 3090 370 Meds/Results Medications: Active Medications Generic Name Dose Route Start Last Admin Trade Name Freq PRN Reason Stop Dose Admin Hydrocodone Bitart/Acetaminophen 1 tab 11/20/20 14:29 11/21/20 12:21 Hydrocodone/Acetaminophen (*Crx) 5-325 Mg Tablet PO 1 tab Q4H PRN
[2020-11-21 14:00] VITALS: BP 102/72; PULSE 76; RESP 16; TEMP 36.5; O2SAT 96
[2020-11-21] MEDS: MORPHINE SULFATE (*CRX) 4 MG/ML INJ 2 MG IV PUSH ×2 (16:15→20:38)
[2020-11-21] MEDS: SUMAtriptan SUCCINATE 25 MG TABLET 50 MG PO ×2 (17:14→19:24)
[2020-11-21] MEDS: traZODone HCL 50 MG TABLET 100 MG PO (20:37)
[2020-11-21] MEDS: HEPARIN SODIUM 5,000 UNITS/ML VIAL 5000 UNITS SUB-Q (20:37)
[2020-11-22] MEDS: MORPHINE SULFATE (*CRX) 4 MG/ML INJ 2 MG IV PUSH ×3 (00:35→10:27)
[2020-11-22] MEDS: LEVOTHYROXINE SODIUM 88 MCG TABLET PO (06:34)
[2020-11-22] MEDS: LORazepam INJ (*CRX) 2 MG/ML VIAL 0.5 MG IV PUSH (08:12)
[2020-11-22] MEDS: HYDROcodone/acetaminophen (*CRX) 5-325 MG TABLET 1 TAB PO ×2 (08:12→12:15)
[2020-11-22] MEDS: TOPIRAMATE 100 MG TABLET PO ×2 (08:13→12:16)
[2020-11-22] MEDS: VENLAFAXINE HCL XR 75 MG CAP.ER.24H 150 MG PO (08:14)
[2020-11-22] MEDS: HEPARIN SODIUM 5,000 UNITS/ML VIAL 5000 UNITS SUB-Q (08:14)
[2020-11-22] MEDS: busPIRone HCL 5 MG TABLET 15 MG PO ×2 (08:14→12:16)
[2020-11-22] MEDS: lamoTRIgine 100 MG TABLET 200 MG PO (08:14)
--- NOTE | 2020-11-22 12:26 | PM.DS ---
DS: Admitting Diagnosis Discharge Date 11/22/2020 Admitting Diagnosis Acute cholecystitis Intractable right upper quadrant abdominal pain Hypothyroidism History of so reassess Seizure disorder History of migraine Asthma History of depression DS: Discharge Diagnosis Discharge Diagnosis (1) Intractable right upper quadrant abdominal pain: Code(s): R10.11 - Right upper quadrant pain Status: Acute Assessment and Plan: CT scan and ultrasound of the abdomen showed distended gallbladder. Probable Bennett sign with tenderness in the right upper quadrant. Surgery service was consulted who recommended laparoscopic cholecystectomy. She underwent procedure yesterday on 11/20. She tolerated the procedure very well. She was complaining of pain at the surgical site today though denied have any nausea vomiting. She is tolerating her diet P (2) Hypothyroidism: Code(s): E03.9 - Hypothyroidism, unspecified Status: Chronic Assessment and Plan: She is currently on her home dose of levothyroxine. TSH is elevated and 37 but T3 and T4 level is within acceptable range. (3) Psoriasis: Code(s): L40.9 - Psoriasis, unspecified Status: Chronic Assessment and Plan: continue with clobetasol ordered (4) Seizure disorder: Code(s): G40.909 - Epilepsy, unspecified, not intractable, without status epilepticus Status: Chronic Assessment and Plan: Continue home medication with Lamictal. (5) Migraine: Code(s): G43.909 - Migraine, unspecified, not intractable, without status migrainosus Status: Chronic Assessment and Plan: Continue on topiramate. (6) Asthma: Code(s): J45.909 - Unspecified asthma, uncomplicated Status: Chronic Assessment and Plan: Patient no longer uses an inhaler No wheezing. DuoNebs on a as needed basis. (7) Depression: Code(s): F32.9 - Major depressive disorder, single episode, unspecified Status: Chronic Assessment and Plan: Continue her home medication. DS: Summary Hospital Course Hospital Course: As above Time Spent with Patient Time attestation: Total time spent providing and/or coordinating discharge services: > 35 minutes Exam Narrative: General awake and alert not in acute distress Neck supple dull tenderness no deformity JVD not elevated CVS S1-S2 no murmur Respiratory no wheezes or crepitation respiration nonlabored GI soft operative merchant with bandages. No significant tenderness. No distention. 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 and grossly nonfocal neurological exam Psychiatric cooperative appropriate mood and affect Musculoskeletal normal range of motion or joint swelling no rashes Extremities no edema DS: Data Data Completed and Pending Pending studies at discharge: Pending at discharge 11/20/20 09:07 Surgical [PTH] Routine Discharge Plan Discharge Attending physician on discharge: Lisa Burris Consulting providers: Aurora Jimenez Discharging Clinician: Lisa Burris Anticipated Discharge Date/Time: 11/22/20 10:43 Patient Disposition: Home, Self-Care Activity: as tolerated Diet: regular Wound Care Instructions: other - see discharge instructions Discharge Instructions: DISCHARGE INSTRUCTION SHEET FOR HERNIA, GALLBLADDER AND APPENDIX SURGERIES DR. JIMENEZ PATIENT TO TAKE HOME 1. May shower in 24 hours, no soaking in bath x 2weeks. 2. Call office for: Wound increasingly painful or bleeding Vomiting Fever of greater than 101 degrees 3. If no bowel movement for three days, take 1 oz. (30 ml) Milk of Magnesia or MiraLax 17g 1 to 2 times daily. 4. No heavy lifting > 10-15 pounds x 6 weeks for hernia repairs and 2 weeks for laparoscopic cholecystectomy or appendectomy. 5. No driving for 3 days or while taking narcotic pain medications. 6. Ice to surgical site for 48 hours (30 min on, then 30 min off).
== END 2020-11-22 12:22 | disposition home or self-care (01) ==
LOC: ANHED 16:25 → ANH3MEDSUR 18:23
PROVIDERS: Family Medicine; Nurse Practitioner; Surgery; Admitting Provider Internal Medicine; Emergency Provider Emergency Medicine; PCP Family Medicine; Visit Provider Internal Medicine Critical Care Medicine
PROC: 0FT44ZZ Resection of Gallbladder, Percutaneous Endoscopic Approach (ICD-10-PCS; CPT 47562; principal; 2020-11-20 09:00)
DX: K80.10 Calculus of gallbladder with chronic cholecystitis without obstruction (principal); R10.11 Right upper quadrant pain; E03.9 Hypothyroidism, unspecified; L40.9 Psoriasis, unspecified; G40.909 Epilepsy, unspecified, not intractable, without status epilepticus
CPT/HCPCS: 47562; 36415; 71045; 74177; 76705; 80053; 81003; 83605; 83615; 83690; 83735; 84439; 84443; 84480; 85025; 88304; 93005; 96361; 96374; 96375; 96376; 99285; A9270; G0378; G0379; J0330; J0690; J1100; J1170; J1644; J1885; J2060; J2250; J2270; J2405; J2704; J3010; J7030; J7120; Q9967

== ENCOUNTER 2021-01-19 13:01 | Emergency (ER) | payer OTHER, SELFPAY ==
[2021-01-19 13:25] VITALS: BP 139/80; PULSE 76; RESP 17; TEMP 35.9; O2SAT 100
[2021-01-19 13:54] LABS: Basophils Absolute Auto 0.1 K/mm3 (0.0-0.1); Basophils Percent Auto 1.6 % (0.2-1.2); Eosinophils Absolute Auto 0.2 K/mm3 (0-0.3); Eosinophils Percent Auto 3.5 % (0-4.4); Hematocrit 45.5 % (37.0-47.0); Hemoglobin 14.7 g/dL (12.0-15.0); Immature Granulocyte Absolute 0.04 K/mm3 (0.00-0.031); Immature Granulocyte Percent A 0.7 % (0-0.5); Lymphocytes Absolute Auto 1.91 K/mm3 (0.9-3.2); Lymphocytes Percent Auto 33.9 % (18.3-44.2); Mean Corpuscular HGB Conc 32.3 g/dl (32-36); Mean Corpuscular Hemoglobin 28.7 pg (26-34); Mean Corpuscular Volume 88.7 fl (80-100); Monocytes Absolute Auto 0.3 K/mm3 (0.1-0.6); Neutrophils Absolute Auto 3.1 K/mm3 (1.3-6.7); Neutrophils Percent Auto 55.3 % (45.5-73.1); Platelet Count Result 212 k/mm3 (150-375); Red Blood Count 5.13 M/mm3 (4.2-5.4); Red Cell Distribution Width 13.2 % (11.5-14.5); White Blood Count 5.6 K/mm3 (4.5-10.0)
[2021-01-19 17:07] LABS: Add Urine Microscopic? NO; Appearance Urine Clear (Clear); Bilirubin Urine Negative (Negative); Blood Urine Negative (Negative); Color Urine Yellow (Yellow); Glucose Urine UA Negative (Negative); Ketones Urine Negative (Negative); Leukocyte Esterase Ur Negative LEU/UL (Negative); Nitrate Urine Negative (Negative); Protein Urine Negative (Negative); Specific Grav Ur 1.018 (1.001-1.035); Urobilinogen Urine Negative mg/dL (<2.0)
[2021-01-19 18:23] LABS: Alanine Aminotransferase 20 U/L (4-35); Alkaline Phosphatase 116 U/L (38-126); Anion Gap 11 mmol/L (8-16); Aspartate Amino Transferase 35 U/L (14-36); Bilirubin,Total 0.5 mg/dL (0.2-1.3); Blood Urea Nitrogen 16 mg/dL (7-17); Calcium 9.4 mg/dL (8.4-10.2); Carbon Dioxide 26 mmol/L (22-30); Chloride 98 mmol/L (98-107); Estimated CRCL calculation 75 ml/min; Estimated Glomerular Filt Rate > 60; Glucose 95 mg/dL (65-110); Lipase 84 U/L (23-300); Potassium 4.2 mmol/L (3.4-5.0); Sodium 135 mmol/L (137-145)
[2021-01-19] MEDS: PROCHLORPERAZINE EDISYLATE 10 MG/2 ML VIAL 5 MG IV PUSH (18:37)
[2021-01-19] MEDS: diphenhydrAMINE HCl INJ 50 MG/ML VIAL 25 MG IV PUSH (18:37)
--- NOTE | 2021-01-19 19:28 | ED.GENADULT ---
HPI - General Adult General Chief complaint: Nausea/Vomiting/Diarrhea Stated complaint: MIGRAINE/NAUSEA Time Seen by Provider: 01/19/21 16:25 Source: patient Mode of arrival: ambulatory Limitations: no limitations History of Present Illness HPI narrative: 55-year-old with a history of chronic migraine headaches, TIA, anxiety, TBI here with complaints of headache, abdominal pain associated with nausea and vomiting. Patient states that she takes Imitrex on a daily basis and her neurologist at [facility]. She states for past 1 week she does not feel well denies any fever or chills. No history of cough or shortness of breath or chest pain. She also states that her platelet count may be low and she is bruising with minimal touch. Related Data Home Medications Medication Instructions Recorded Confirmed buspirone 15 mg PO TID 11/19/20 11/19/20 clobetasol See Rx Instructions .ROUTE .COMPLEX 11/19/20 11/19/20 hydroxyzine pamoate 100 mg PO QID PRN 11/19/20 11/19/20 lamotrigine 200 mg PO DAILY 11/19/20 11/19/20 levothyroxine 88 mcg PO DAILY 11/19/20 11/19/20 sumatriptan succinate [Imitrex] 50 mg PO TID PRN 11/19/20 11/19/20 topiramate 100 mg PO TID 11/19/20 11/19/20 trazodone 100 mg PO HS 11/19/20 11/19/20 venlafaxine 150 mg PO DAILY 11/19/20 11/19/20 Allergies Allergy/AdvReac Type Severity Reaction Status Date / Time Penicillins Allergy Unknown Unknown Verified 01/19/21 16:34 Review of Systems Review of Systems: All systems reviewed & are unremarkable except as noted in HPI and below Constitutional: Constitutional: Reports no additional constitutional complaints Eyes: Eyes: Reports no additional eye complaints ENT: Reports system reviewed and no additional complaints, except as documented Cardiovascular: Cardiovascular: Reports no additional cardiovascular complaints Respiratory: Respiratory: Reports no additional respiratory complaints Gastrointestinal: Gastrointestinal: Reports as per HPI Musculoskeletal: Musculoskeletal: Reports no additional musculoskeletal complaints Integumentary/Breasts: Skin/Breast: Reports system reviewed and no additional complaints, except as docu Neurologic: Reports as per HPI [facility] Past Medical History Medical History Anxiety Asthma Congestive heart failure Depression Hypothyroidism Migraine Psoriasis Pulmonary emboli Seizure disorder Traumatic brain injury causing some memory problems Surgical History Surgical History H/O hand surgery left hand H/O lumpectomy left arm History of section, classical Family History Family History Father Congestive heart failure Social History Social History Social History: the patient is and she is an ex-smoker. She had 3 children and 1 daughter committed suicide at the age of 13. 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 The patient does not have a power defense attorney and is a full code. Smoking packs per day: 1 Smoking cigarettes per day: 20.0 Years smoked: 30 Smoking pack-years: 30.00 Smoking status: Former smoker Alcohol intake: former Substance use: never Gender identity (if verbalized by the patient): Female Spiritual care concerns: No Exam Narrative: GENERAL: Well-appearing, well-nourished, and in no acute distress. HEAD: Normocephalic, atraumatic. EYES: PERRLA and EOMI. NECK: Supple. CHEST: Clear to auscultation. No respiratory distress. HEART: Regular rate and rhythm. No murmur heard. Normal peripheral pulses. ABDOMEN: Soft, nontender, nondistended, normal active bowel sounds. EXTREMITIES: Normal range of motion. No edema. Multiple old scars on both extremities. SKIN: Warm, dry, no rash. NEURO: No focal d
== END 2021-01-19 20:38 | disposition home or self-care (01) ==
PROVIDERS: Emergency Medicine; Emergency Provider Family Medicine; PCP Family Medicine
DX: G43.919 Migraine, unspecified, intractable, without status migrainosus (principal); R11.2 Nausea with vomiting, unspecified; G40.909 Epilepsy, unspecified, not intractable, without status epilepticus; J45.909 Unspecified asthma, uncomplicated; I50.9 Heart failure, unspecified; E03.9 Hypothyroidism, unspecified; F41.9 Anxiety disorder, unspecified; Z86.711 Personal history of pulmonary embolism; Z87.820 Personal history of traumatic brain injury; Z87.891 Personal history of nicotine dependence
CPT/HCPCS: 36415; 80053; 81003; 81025; 83690; 85025; 96374; 96375; 99284; J0780; J1200

== ENCOUNTER 2021-12-22 11:46 | Emergency (ER) | payer OTHER, SELFPAY ==
--- NOTE | ~2021-12-22 | CT_ITS ---
EXAMINATION: CT abdomen pelvis w con DATE: 12/22/2021 14:01 INDICATION: Right upper quadrant abdominal pain. TECHNIQUE: Computed tomography (CT) of the abdomen and pelvis was performed with 100 mL Omnipaque 350 intravenous contrast. Automated exposure control and iterative reconstruction technique were employe d. The dose-length product was 872.83 mGy-cm. COMPARISON: CT abdomen and pelvis 11/19/2020 FINDINGS: The visualized portions of the lung bases demonstrate mild atelectasis. No pleural effusion . The heart size is normal. No pericardial effusion. There is mild intrahepatic biliary duct dilatati on, and the common duct is dilated to 11 mm, likely not clinically significant given the normal liver fraction test. There are changes of cholecystectomy. The spleen, pancreas, adrenal glands, and kidne ys are normal. There are no dilated loops of bowel. The appendix is normal. There are no pathological ly enlarged lymph nodes. There is no free intraperitoneal fluid. There are chronic bilateral L5 pars defects. There is mild thoracolumbar spondylosis. IMPRESSION: 1. No etiology for the patient's symptoms. Reviewed, dictated and finalized at location [facility]. [facility]
[2021-12-22 11:55] VITALS: BP 144/74; PULSE 76; RESP 14; TEMP 36.5; O2SAT 100
[2021-12-22 12:34] LABS: Alanine Aminotransferase 20 U/L (6-35); Albumin Level 4.8 g/dL (3.5-5.1); Alkaline Phosphatase 106 U/L (38-126); Anion Gap 10 mmol/L (8-16); Aspartate Amino Transferase 29 U/L (14-36); Bilirubin,Total 0.5 mg/dL (0.2-1.3); Blood Urea Nitrogen 10 mg/dL (7-17); Calcium 8.9 mg/dL (8.4-10.2); Carbon Dioxide 26 mmol/L (22-30); Chloride 102 mmol/L (98-107); Estimated CRCL calculation 62 ml/min; Estimated Glomerular Filt Rate 58; Glucose 95 mg/dL (65-110); Lipase 66 U/L (23-300); Sodium 138 mmol/L (137-145)
[2021-12-22 12:44] LABS: Appearance Urine Clear (Clear); Bilirubin Urine Negative (Negative); Blood Urine Negative (Negative); Color Urine Yellow (Yellow); Glucose Urine UA Negative (Negative); Ketones Urine Trace mg/dL (Negative); Leukocyte Esterase Ur Trace LEU/UL (Negative); Nitrate Urine Negative (Negative); Protein Urine Negative (Negative); Specific Grav Ur 1.025 (1.001-1.035); Urobilinogen Urine 0.2 mg/dL (<2.0)
[2021-12-22 12:55] LABS: Basophils Absolute Auto 0.1 K/mm3 (0.0-0.1); Basophils Percent Auto 1.1 % (0.2-1.2); Eosinophils Absolute Auto 0.3 K/mm3 (0-0.3); Eosinophils Percent Auto 5.5 % (0-4.4); Hematocrit 38.6 % (37.0-47.0); Hemoglobin 12.6 g/dL (12.0-15.0); Immature Granulocyte Absolute 0.03 K/mm3 (0.00-0.031); Immature Granulocyte Percent A 0.6 % (0-0.5); Lymphocytes Percent Auto 33.8 % (18.3-44.2); Mean Corpuscular HGB Conc 32.6 g/dl (32-36); Mean Corpuscular Volume 88.9 fl (80-100); Mean Platelet Volume 10.8 fl (7.4-10.4); Monocytes Absolute Auto 0.4 K/mm3 (0.1-0.6); Monocytes Percent Auto 7.9 % (2.6-8.5); Neutrophils Absolute Auto 2.7 K/mm3 (1.3-6.7); Neutrophils Percent Auto 51.1 % (45.5-73.1); Platelet Count Result 300 k/mm3 (150-375); Red Blood Count 4.34 M/mm3 (4.2-5.4); Red Cell Distribution Width 13.1 % (11.5-14.5); White Blood Count 5.3 K/mm3 (4.5-10.0)
[2021-12-22 13:15] LABS: RBC Urine 0-2 /hpf (0-2); WBC Urine 0-3 /hpf
--- NOTE | 2021-12-22 13:18 | ED.ABDPAIN ---
HPI - Abdominal Pain General Chief Complaint: Abdominal Pain Stated Complaint: RUQ pain Time Seen by Provider: 12/22/21 13:12 History of Present Illness HPI narrative: 56-year-old female history of migraines, depression, cholecystectomy presents the emergency room for evaluation of right upper quadrant pain for 3 months. States pain has been getting worse over the past month. Denies any associated symptoms such as nausea, vomiting diarrhea or constipation. Patient states that she has been taking Tylenol, ibuprofen and kratom. Has not seen any other providers for this issue. Denies fevers or injury. Pain is worse when lying flat. States pain radiates into her back Related Data Home Medications Medication Instructions Recorded Confirmed buspirone 15 mg tablet 15 mg PO TID 11/19/20 11/19/20 clobetasol 0.05 % scalp solution See Rx Instructions .Route .COMPLEX 11/19/20 11/19/20 hydroxyzine pamoate 100 mg capsule 100 mg PO QID PRN Itching 11/19/20 11/19/20 lamotrigine 200 mg tablet 200 mg PO DAILY 11/19/20 11/19/20 levothyroxine 88 mcg tablet 88 mcg PO DAILY 11/19/20 11/19/20 sumatriptan succinate 50 mg tablet 50 mg PO TID PRN Nausea 11/19/20 11/19/20 (Imitrex) topiramate 100 mg tablet 100 mg PO TID 11/19/20 11/19/20 trazodone 100 mg tablet 100 mg PO HS 11/19/20 11/19/20 venlafaxine 150 mg 150 mg PO DAILY 11/19/20 11/19/20 capsule,extended release 24 hr Allergies Allergy/AdvReac Type Severity Reaction Status Date / Time Penicillins Allergy Unknown Unknown Verified 12/22/21 13:12 Review of Systems Review of Systems: CONSTITUTIONAL: Denies fever, chills, or sweats. EYES: Denies visual changes, redness, or discharge. ENT: Denies rhinorrhea, congestion, sore throat, or otalgia. CARDIOVASCULAR: Denies chest pain, palpitations, or edema. RESPIRATORY: Denies cough or dyspnea. GASTROINTESTINAL: Denies abdominal pain, nausea, vomiting, or diarrhea. GENITOURINARY: Denies dysuria or hematuria. SKIN: Denies rash or itching. MUSCULOSKELETAL: Denies back pain, joint pain, or myalgia. NEUROLOGIC: Denies headache, numbness, dizziness, or weakness. PSYCHIATRIC: Denies anxiety or depression. [facility] Past Medical History Medical History Anxiety Asthma Congestive heart failure Depression Hypothyroidism Migraine Psoriasis Pulmonary emboli Seizure disorder Traumatic brain injury causing some memory problems Surgical History Surgical History H/O hand surgery left hand H/O lumpectomy left arm History of section, classical Family History Family History Father Congestive heart failure Social History Social History Social History: the patient is and she is an ex-smoker. She had 3 children and 1 daughter committed suicide at the age of 13. 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 The patient does not have a power deputy attorney general and is a full code. Smoking packs per day: 1 Smoking cigarettes per day: 20.0 Years smoked: 30 Smoking pack-years: 30.00 Smoking status: Former smoker Alcohol intake: former Substance use: never Gender identity (if verbalized by the patient): Female Spiritual care concerns: No Exam Narrative: GENERAL: Well-appearing, well-nourished, no physical limitations, and in no acute distress. HEAD: Normocephalic, atraumatic. EYES: Conjunctivae normal, PERRLA and EOMI. CHEST: Clear to auscultation. No respiratory distress. No wheezes rales or rhonchi. HEART: Regular rate and rhythm. No murmur heard. Normal peripheral pulses. ABDOMEN: Soft, RUQ tenderness, nondistended, normal active bowel sounds. BACK: No CVA tenderness EXTREMITIES: Normal range of motion. No edema. No clubbing or cyanosis SKIN: Warm, dry, n
[2021-12-22 13:19] LABS: Add Urine Microscopic? YES
[2021-12-22] MEDS: KETOROLAC 30 MG/ML VIAL (*BKC) IV PUSH (13:36)
[2021-12-22] MEDS: SODIUM CHLORIDE 0.9% IV 1,000 ML 999 ML IV CONT (13:37)
[2021-12-22 14:33] VITALS: BP 141/83; PULSE 75; RESP 17; O2SAT 100
== END 2021-12-22 14:35 | disposition home or self-care (01) ==
PROVIDERS: Emergency Medicine; Emergency Provider Nurse Practitioner Family
DX: R10.11 Right upper quadrant pain (principal); F41.9 Anxiety disorder, unspecified; J45.909 Unspecified asthma, uncomplicated; I50.9 Heart failure, unspecified; E03.9 Hypothyroidism, unspecified; G40.909 Epilepsy, unspecified, not intractable, without status epilepticus
CPT/HCPCS: 36415; 74177; 80053; 81001; 81025; 83690; 85025; 96361; 96374; 99284; J1885; J7030; Q9967

== ENCOUNTER 2021-12-29 08:29 | Emergency (ER) | payer OTHER, SELFPAY ==
[2021-12-29 08:40] VITALS: BP 149/77; PULSE 73; RESP 16; TEMP 36.7; O2SAT 98
--- NOTE | 2021-12-29 08:45 | ED.URI ---
HPI - URI/Sore Throat General Chief Complaint: Upper Respiratory Infection Stated Complaint: sore throat History of Present Illness HPI Narrative: 56 y/o female presented for c/o cough, congestion, body aches, and sore throat worsening for 4 days. Denies sick contacts. Denies sob, wheezing, vomiting or fatigue. Taking otc meds for symptoms. Hx CHF, hypothyroidism, TBI, asthma. Related Data Home Medications Medication Instructions Recorded Confirmed buspirone 15 mg tablet 15 mg PO TID 11/19/20 11/19/20 clobetasol 0.05 % scalp solution See Rx Instructions .Route .COMPLEX 11/19/20 11/19/20 lamotrigine 200 mg tablet 200 mg PO DAILY 11/19/20 11/19/20 levothyroxine 88 mcg tablet 88 mcg PO DAILY 11/19/20 11/19/20 sumatriptan succinate 50 mg tablet 50 mg PO TID PRN Nausea 11/19/20 11/19/20 (Imitrex) topiramate 100 mg tablet 100 mg PO TID 11/19/20 11/19/20 trazodone 100 mg tablet 100 mg PO HS 11/19/20 11/19/20 venlafaxine 150 mg 150 mg PO DAILY 11/19/20 11/19/20 capsule,extended release 24 hr clobetasol 0.05 % scalp solution topical 12/29/21 ketoconazole 2 % shampoo topical 12/29/21 selenium sulfide 2.5 % lotion topical 12/29/21 12/29/21 Allergies Allergy/AdvReac Type Severity Reaction Status Date / Time Penicillins Allergy Unknown Unknown Verified 12/29/21 08:41 Review of Systems Review of Systems: CONSTITUTIONAL: Denies body aches, fever, chills, or sweats. EYES: Denies visual changes, redness ENT: Reports rhinorrhea, congestion, sore throat; denies otalgia. CARDIOVASCULAR: Denies chest pain, palpitations, or edema. RESPIRATORY: Denies dyspnea. GASTROINTESTINAL: Denies abdominal pain, nausea, vomiting, or diarrhea. SKIN: Denies rash, itching, or wounds. MUSCULOSKELETAL: Denies back pain, joint pain, or myalgia. NEUROLOGIC: Denies headache PMFSH Past Medical History Medical History Anxiety Asthma Congestive heart failure Depression Hypothyroidism Migraine Psoriasis Pulmonary emboli Seizure disorder Traumatic brain injury causing some memory problems Surgical History Surgical History H/O hand surgery left hand H/O lumpectomy left arm History of section, classical Family History Family History Father Congestive heart failure Social History Social History Social History: the patient is and she is an ex-smoker. She had 3 children and 1 daughter committed suicide at the age of 13. 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 The patient does not have a power tax associate attorney and is a full code. Smoking packs per day: 1 Smoking cigarettes per day: 20.0 Years smoked: 30 Smoking pack-years: 30.00 Smoking status: Former smoker Alcohol intake: former Substance use: never Gender identity (if verbalized by the patient): Female Spiritual care concerns: No Exam Narrative: GENERAL: well-appearing, no acute distress. EYES: conjunctivae clear ENT: Mucous membranes moist. TM pearly longo with normal light reflex bilaterally; no tragal tenderness. Oropharynx erythematous without lesions. No drooling, no hoarseness, no trismus, uvula midline. No tripod positioning, hot potato voice, or soft palate swelling. NECK: Supple. No lymphadenopathy CHEST: Clear to auscultation, breath sounds equal. No respiratory distress, speaks in full sentences. HEART: Regular rate and rhythm. No murmur heard. SKIN: Warm, dry, no rash. NEURO: Alert and oriented x3. Course Course Emergency Course: Patient is aware of diagnosis, understands and agrees to treatment plan. Anticipatory guidance given. Patient agrees to follow-up as directed and is aware of reasons to seek care at the emergency department. Portions of this record m
== END 2021-12-29 09:13 | disposition home or self-care (01) ==
PROVIDERS: Emergency Provider Nurse Practitioner Family; PCP Family Medicine
DX: B34.9 Viral infection, unspecified (principal); Z87.891 Personal history of nicotine dependence; J45.909 Unspecified asthma, uncomplicated; E03.9 Hypothyroidism, unspecified; Z86.711 Personal history of pulmonary embolism; G40.909 Epilepsy, unspecified, not intractable, without status epilepticus; Z87.820 Personal history of traumatic brain injury; F41.9 Anxiety disorder, unspecified; I50.9 Heart failure, unspecified
CPT/HCPCS: 87081; 87804; 87880; 99213; G0463

== ENCOUNTER 2022-04-14 13:24 | Emergency (ER) | payer OTHER, SELFPAY ==
[2022-04-14 13:38] VITALS: BP 133/88; PULSE 84; RESP 16; TEMP 37.6; O2SAT 99
--- NOTE | 2022-04-14 14:02 | ED.URI ---
HPI - URI/Sore Throat General Chief Complaint: Upper Respiratory Infection Stated Complaint: sore throat Time Seen by Provider: 04/14/22 13:56 Source: patient Mode of arrival: ambulatory Limitations: no limitations History of Present Illness HPI Narrative: patient is a 56-year-old female presenting with sore throat, mild cough, sinus congestion and headache Since Monday. has been taking DayQuil with no relief. Sister tested positive for flu last week. Related Data Home Medications Medication Instructions Recorded Confirmed buspirone 15 mg tablet 15 mg PO TID 11/19/20 04/14/22 clobetasol 0.05 % scalp solution See Rx Instructions .Route .COMPLEX 11/19/20 04/14/22 lamotrigine 200 mg tablet 200 mg PO DAILY 11/19/20 04/14/22 sumatriptan succinate 50 mg tablet 50 mg PO TID PRN Nausea 11/19/20 04/14/22 (Imitrex) topiramate 100 mg tablet 100 mg PO TID 11/19/20 04/14/22 trazodone 100 mg tablet 100 mg PO HS 11/19/20 04/14/22 venlafaxine 150 mg 150 mg PO DAILY 11/19/20 04/14/22 capsule,extended release 24 hr clobetasol 0.05 % scalp solution 0.05 applic topical DIRECTED 12/29/21 04/14/22 ketoconazole 2 % shampoo 1 applic topical DIRECTED 12/29/21 04/14/22 selenium sulfide 2.5 % lotion 1 applic topical DIRECTED 12/29/21 04/14/22 adalimumab 40 mg/0.4 mL 40 mg subcut 2XW 04/14/22 04/14/22 subcutaneous pen kit (Humira(CF) Pen) hydroxyzine pamoate 100 mg capsule 100 mg PO TID 04/14/22 04/14/22 Allergies Allergy/AdvReac Type Severity Reaction Status Date / Time Penicillins Allergy Unknown Unknown Verified 04/14/22 13:29 Review of Systems Review of Systems: CONSTITUTIONAL: Reports malaise, chills, sweats, or fever.? EYES: Denies visual changes, redness, or discharge.? ENT: denies rhinorrhea, congestion, sinus pain, otalgia reports sore throat.? CARDIOVASCULAR: Denies chest pain, palpitations, or edema.? RESPIRATORY: denies cough, dyspnea.? GASTROINTESTINAL: Denies abdominal pain, nausea, vomiting, diarrhea? SKIN: Denies rash or itching.? MUSCULOSKELETAL: reports myalgia.? NEUROLOGIC: reports headache All systems reviewed & are unremarkable except as noted in HPI and below PMFSH Past Medical History Medical History Anxiety Asthma Congestive heart failure Depression Hypothyroidism Migraine Psoriasis Pulmonary emboli Seizure disorder Traumatic brain injury causing some memory problems Surgical History Surgical History H/O hand surgery left hand H/O lumpectomy left arm History of section, classical Family History Family History Father Congestive heart failure Social History Social History Social History: the patient is and she is an ex-smoker. She had 3 children and 1 daughter committed suicide at the age of 13. 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 The patient does not have a power district attorney and is a full code. Smoking packs per day: 1 Smoking cigarettes per day: 20.0 Years smoked: 30 Smoking pack-years: 30.00 Smoking status: Former smoker Alcohol intake: former Substance use: never Gender identity (if verbalized by the patient): Female Spiritual care concerns: No Comments At time of signature, agree with nursing past medical, surgical, social and family history. There is no relevant family history pertinent to the presenting complaint? Exam Narrative: GENERAL: Well-appearing, well-nourished, and in no acute distress.? HEAD: Normocephalic, atraumatic.? EYES: PERRLA, conjunctivae clear, and EOMI. No nystagmus.? ENT: Nares clear, turbinates pink, no rhinorrhea or epistaxis. Mucous membranes moist. TM pearly longo with sharp light reflex bilaterally; no tragal tenderness. Oropharynx wit
== END 2022-04-14 14:28 | disposition home or self-care (01) ==
PROVIDERS: Emergency Provider Nurse Practitioner Family; PCP Family Medicine
DX: J02.0 Streptococcal pharyngitis (principal); F41.9 Anxiety disorder, unspecified; F32.9 Major depressive disorder, single episode, unspecified; E03.9 Hypothyroidism, unspecified; I50.9 Heart failure, unspecified; Z87.891 Personal history of nicotine dependence; Z20.822 Contact with and (suspected) exposure to COVID-19
CPT/HCPCS: 87426; 87804; 87880; 99213; C9803; G0463